=== PATIENT | female | born 1990 | race African-American/Black ===

== ENCOUNTER 2019-02-18 18:10 | Emergency (ER) | payer OTHER ==
[2019-02-18 18:41] VITALS: BP 143/59; PULSE 85; TEMP 98.2; BMI 29.3
[2019-02-18] MEDS ORDERED: KETOROLAC TROMETHAMINE 60 MG/2 ML VIAL IM ONE (19:10)
[2019-02-18] MEDS ORDERED: DIPHTH,PERTUSS(ACELL),TET 0.5 ML DISP.SYRIN IM ONE ×2 (19:10→19:41)
--- NOTE | 2019-02-18 19:19 | PDOC ---
History of Present Illness - General Chief Complaint: Injury Stated Complaint: FALL/INJURY Time Seen by Provider: 02/18/19 18:41 History Source: Patient Exam Limitations: Clinical Condition - History of Present Illness Initial Comments: 02/18/19 19:12 Patient with no significant past medical history present with complaint of symptoms day history of left knee pain and abrasion to left knee status post slip and fall going down stairs 6 days ago. Patient reported she tripped while going downstairs and fell hitting left knee and have an abrasion to left anterior knee. Patient reported increased pain with ambulation. Patient did not take anything for pain. Patient does not recall last tetanus vaccine Timing/Duration: other (6 days) Past History - Past Medical History Allergies/Adverse Reactions: Allergies Allergy/AdvReac Type Severity Reaction Status Date / Time No Known Allergies Allergy Verified 02/18/19 18:38 Home Medications: Ambulatory Orders Cephalexin Monohydrate [Keflex -] 500 mg PO BID 7 Days #14 capsule 02/18/19 Ibuprofen 800 mg PO Q8H PRN #20 tablet 02/18/19 Leg Brace [Knee Brace] 1 each MC DAILY #1 each 02/18/19 COPD: No - Immunization History Immunization Up to Date: Yes - Suicide/Smoking/Psychosocial Hx Smoking History: Never smoked Hx Alcohol Use: No Drug/Substance Use Hx: No Review of Systems - Review of Systems Able to Perform ROS?: Yes Is the patient limited Cymro proficient: No Constitutional: No: Weakness HEENTM: No: Symptoms Reported Respiratory: No: Symptoms reported Cardiac (ROS): No: Symptoms Reported ABD/GI: No: Symptoms Reported Musculoskeletal: Yes: See HPI, Joint Pain (left anterior knee), Muscle Pain ( left knee) Integumentary: Yes: Symptoms Reported, See HPI, Other (abrasions to anterior left knee) Neurological: No: Numbness, Paresthesia, Tingling, Weakness All Other Systems: Reviewed and Negative *Physical Exam - Vital Signs Last Vital Signs Temp Pulse Resp BP Pulse Ox 98.2 F 85 16 143/59 L 99 02/18/19 18:38 02/18/19 18:38 02/18/19 18:38 02/18/19 18:38 02/18/19 18:38 - Physical Exam Comments: 02/18/19 19:22 GENERAL: Well developed, well nourished. Awake and alert. No acute distress. CARDIOVASCULAR: Regular rate and rhythm. No murmurs, rubs, or gallops. PULMONARY: No evidence of respiratory distress. MUSCULOSKELETAL : Moderate tenderness over anterior left patella. Superficial abrasions to infrapatellar of left knee without bleeding. No joint swelling or effusion to left knee. No bony deformities SKIN: Warm and dry. Normal capillary refill. Superficial abrasions of anterior left knee to infrapatellar region. NEUROLOGICAL: Alert, awake, appropriate. No motor deficits in the lower extremities. Gait is normal without ataxia. PSYCHIATRIC: Cooperative. Good eye contact. Appropriate mood and affect. General Appearance: Yes: Nourished, Appropriately Dressed. No: Apparent Distress ED Treatment Course - RADIOLOGY Radiology Studies Ordered: Category Date Time Status KNEE 3 POS-LEFT [RAD] Stat Radiology 02/18/19 18:42 Taken Medical Decision Making - Medical Decision Making 02/18/19 19:19 Patient with no significant past medical history present with complaint of symptoms day history of left knee pain and abrasion to left knee status post slip and fall going down stairs 6 days ago. Patient reported she tripped while going downstairs and fell hitting left knee and have an abrasion to left anterior knee. Patient reported increased pain with ambulation. Patient did not take anything for pain. Patient does not recall last tetanus vaccine. Exam significant for 4 cm circular superficial abrasion to infrapatellar aspect of left knee without bleeding. Moderate tenderness to anterior patella of left knee. No joint effusion or swelling. Wound cleaned with Betadine and bacitracin applied to wound. Wound covered with adhesive bandage. X-ray of left knee shows no acute pathology of left knee. Toradol 60 mg IM given for pain. Tetanus vaccine given. Patient is stable for discharge on knee support brace with education on home wound care and Keflex antibiotics for infection prophylaxis with PCP follow-up *DC/Admit/Observation/Transfer Diagnosis at time of Disposition: Abrasion, left knee, initial encounter, Left anterior knee pain - Discharge Dispostion Disposition: HOME Condition at time of disposition: Stable Decision to Admit order: No - Prescriptions Prescriptions: Cephalexin Monohydrate [Keflex -] 500 mg PO BID 7 Days #14 capsule Ibuprofen 800 mg PO Q8H PRN #20 tablet PRN Reason: pain Leg Brace [Knee Brace] 1 each MC DAILY #1 each - Referrals Referrals: Emil Bull DO [Staff Physician] - - Patient Instructions Printed Discharge Instructions: DI for Abrasion, How to Use an Elastic Bandage- Knee Sprain, DI for Knee Sprain Additional Instructions: Take medications as prescribed. take it easy on left knee. ambulate as tolerated and use prescribed knee brace - Post Discharge Activity Forms/Work/School Notes: Back to Work
[2019-02-18] MEDS ORDERED: KETOROLAC TROMETHAMINE 60 MG/2 ML VIAL ONE (19:41)
== END 2019-02-18 20:15 | disposition home or self-care (01) ==
LOC: JERFT 18:10
PROC: 3E0234Z Introduction of Serum, Toxoid and Vaccine into Muscle, Percutaneous Approach (ICD-10-PCS; principal; 2019-02-18)
PROC: 3E0233Z Introduction of Anti-inflammatory into Muscle, Percutaneous Approach (ICD-10-PCS; 2019-02-18)
DX: S80.212A Abrasion, left knee, initial encounter (principal); W10.8XXA Fall (on) (from) other stairs and steps, initial encounter; Y93.89 Activity, other specified; Y92.89 Other specified places as the place of occurrence of the external cause; Y99.8 Other external cause status
CPT/HCPCS: 73562-TC-LT-FY; 90715; 99281-25

== ENCOUNTER 2022-09-07 18:23 | Emergency (ER) | payer OTHER ==
[2022-09-07 18:30] VITALS: BP 119/82; PULSE 72; RESP 18; TEMP 98; BMI 30.5
[2022-09-07] MEDS ORDERED: SODIUM CHLORIDE 0.9% 500 ML INFUS.BAG IV ONE (20:31)
[2022-09-07] MEDS ORDERED: ACETAMINOPHEN 500 MG TABLET (FP) PO ONE (20:31)
[2022-09-07] MEDS ORDERED: ACETAMINOPHEN 325 MG TABLET (FP) ONE (20:33)
[2022-09-07 20:54] LABS: HEMATOCRIT 33.2 % (32.4-45.2); HEMOGLOBIN 10.5 GM/dL (10.7-15.3); MCHC 31.5 g/dl (32.0-36.0); MEAN PLT VOLUME 9.5 fl (7.5-11.1); RBC 5.53 M/mm3 (3.60-5.2); RDW 18.6 % (11.6-15.6); WHITE BLOOD COUNT 8.2 K/mm3 (4.0-10.0)
[2022-09-07 20:58] LABS: EPI CELLS 32 /uL (0-25.1); HYALINE CASTS 0 /uL (0-3.1); PH,URINE 5.5 (5.0-8.0); URINE APPEARANCE CLEAR; URINE BACTERIA 582 /uL (0-1359); URINE BILIRUBIN NEGATIVE (NEGATIVE); URINE COLOR YELLOW; URINE GLUCOSE (UA) NEGATIVE (NEGATIVE); URINE KETONE NEGATIVE (NEGATIVE); URINE LEUK ESTERASE NEGATIVE (NEGATIVE); URINE NITRITE NEGATIVE (NEGATIVE); URINE PROTEIN NEGATIVE (NEGATIVE); URINE RBC 151 /uL (0-23.9); URINE UROBILINOGEN 0.2 mg/dL (0.2-1.0); URINE WBC 24 /uL (0-25.8)
[2022-09-07 21:02] LABS: ADD RBC MORPHOLOGY YES; MCH 18.9 pg (25.7-33.7)
[2022-09-07 21:14] LABS: CALCIUM 9.8 mg/dL (8.5-10.1)
[2022-09-07 21:16] LABS: BLOOD UREA NITROGEN 10.3 mg/dL (7-18)
[2022-09-07 21:17] LABS: CREATININE 0.8 mg/dL (0.55-1.3)
[2022-09-07 21:19] LABS: BILIRUBIN,TOTAL 0.4 mg/dL (0.2-1)
[2022-09-07 21:35] LABS: ANISOCYTOSIS 3+; MACROCYTOSIS 0; TARGET CELLS 2+; TEAR DROP CELLS 1+
[2022-09-07 21:36] LABS: PLATELET COUNT 240 10^3/uL (134-434)
== END 2022-09-07 22:47 | disposition home or self-care (01) ==
LOC: JER 18:23
DX: O26.891 Other specified pregnancy related conditions, first trimester (principal); R10.30 Lower abdominal pain, unspecified; Z3A.01 Less than 8 weeks gestation of pregnancy
CPT/HCPCS: 36415; 76817-TC; 80053; 81003; 84702; 84703; 85025; 86850; 86900; 86901; 87086; 99284-25

== ENCOUNTER 2025-05-05 19:41 | Emergency (ER) | payer OTHER ==
[2025-05-05 19:50] VITALS: BP 139/84; PULSE 93; RESP 18; TEMP 98.8; BMI 30.4
[2025-05-05] MEDS ORDERED: ACETAMINOPHEN INJECTION 100 ML ONE (20:52)
[2025-05-05] MEDS ORDERED: FAMOTIDINE 20 MG/50 ML IVPB 20 MG/50 ML MG IVPB ONE (20:53)
[2025-05-05] MEDS ORDERED: ONDANSETRON 4 MG/2 ML VIAL ONE (20:53)
[2025-05-05 21:03] LABS: ABSOLUTE IMMATURE GRANULOCYTES 0.01 x10^3/uL (0.0-0.031); BASOPHILS # 0.02 x10^3/uL (0.01-0.08); EOSINOPHIL % 0.6 % (0.7-5.8); EOSINOPHILS # 0.04 x10^3/uL (0.04-0.36)
[2025-05-05 21:07] LABS: EPI CELLS 25 /uL (0-25.1); HYALINE CASTS 0 /uL (0-3.1); PH,URINE 5.5 (5.0-8.0); URINE APPEARANCE CLEAR; URINE BACTERIA 752 /uL (0-1359); URINE BILIRUBIN NEGATIVE (NEGATIVE); URINE COLOR YELLOW; URINE GLUCOSE (UA) NEGATIVE (NEGATIVE); URINE KETONE 1+ (NEGATIVE); URINE LEUK ESTERASE 1+ (NEGATIVE); URINE NITRITE NEGATIVE (NEGATIVE); URINE PROTEIN NEGATIVE (NEGATIVE); URINE RBC 14 /uL (0-23.9); URINE WBC 17 /uL (0-25.8)
[2025-05-05] MEDS: FAMOTIDINE 20 MG/50 ML IVPB 20 MG/50 ML MG IVPB ONE (21:07)
[2025-05-05] MEDS: ONDANSETRON 4 MG/2 ML VIAL IVPUSH ONE (21:07)
[2025-05-05] MEDS: ACETAMINOPHEN 1000 MG/100 ML BAG IVPB ONE (21:07)
[2025-05-05 21:11] LABS: HEMATOCRIT 36.6 % (34.1-44.9); HEMOGLOBIN 11.1 g/dL (11.2-15.7); MCHC 30.3 g/dl (32.2-35.5); MEAN CELL VOLUME 59.2 fl (79.4-94.8); MONOCYTE # 0.42 x10^3/uL (0.24-0.86); MONOCYTE % 6.5 % (4.7-12.5); PLATELET COUNT 166 x10^3/uL (182-369)
[2025-05-05] MEDS: LACTATED RINGERS SOLUTION 1000 ML INFUS.BAG IV ONE (21:14)
[2025-05-05 21:24] LABS: ALBUMIN 4.3 g/dl (3.4-5.0); BLOOD UREA NITROGEN 9.5 mg/dL (7-18); MAGNESIUM 2.1 mg/dL (1.8-2.4)
[2025-05-05 21:27] LABS: CREATININE 0.9 mg/dL (0.55-1.3)
[2025-05-05 21:29] LABS: BILIRUBIN,TOTAL 0.6 mg/dL (0.2-1); TOT PROT 8.3 g/dl (6.4-8.2)
[2025-05-05 22:22] LABS: HIV INTERPRETATION NEGATIVE (NEGATIVE)
[2025-05-05 22:23] LABS: HCV DIAGNOSTIC IN-HOUSE W/RFLX NON-REACTIVE (NONREACTIVE)
[2025-05-05] MEDS ORDERED: CEFPODOXIME PROXETIL 100 MG TABLET PO ONE (22:45)
[2025-05-05] MEDS ORDERED: LACTATED RINGERS SOLUTION 1000 ML INFUS.BAG IV ONE (23:07)
[2025-05-05] MEDS ORDERED: CEFTRIAXONE 1 GM/50 ML BAG ONE (23:27)
[2025-05-05] MEDS ORDERED: METOCLOPRAMIDE HCL INJECTION 10 MG/2 ML VIAL ONE (23:29)
[2025-05-05] MEDS: METOCLOPRAMIDE HCL INJECTION 10 MG/2 ML VIAL IVPB ONE (23:39)
[2025-05-05] MEDS: SODIUM CHLORIDE 0.9% 500 ML INFUS.BAG IV ONE (23:39)
[2025-05-06] MEDS: CEFTRIAXONE 1,000 MG in DEXTROSE 5%-WATER - 50 ML IVPB ONE (01:30)
== END 2025-05-06 02:54 | disposition home or self-care (01) ==
LOC: JER 19:41
PROC: 3E033GC Introduction of Other Therapeutic Substance into Peripheral Vein, Percutaneous Approach (ICD-10-PCS; principal; 2025-05-05)
PROC: 3E03329 Introduction of Other Anti-infective into Peripheral Vein, Percutaneous Approach (ICD-10-PCS; 2025-05-05)
PROC: 3E033GC Introduction of Other Therapeutic Substance into Peripheral Vein, Percutaneous Approach (ICD-10-PCS; 2025-05-05)
PROC: 3E033GC Introduction of Other Therapeutic Substance into Peripheral Vein, Percutaneous Approach (ICD-10-PCS; 2025-05-05)
PROC: 3E033NZ Introduction of Analgesics, Hypnotics, Sedatives into Peripheral Vein, Percutaneous Approach (ICD-10-PCS; 2025-05-05)
DX: N12 Tubulo-interstitial nephritis, not specified as acute or chronic (principal); R11.2 Nausea with vomiting, unspecified; R53.81 Other malaise; R53.83 Other fatigue; R63.8 Other symptoms and signs concerning food and fluid intake; R10.84 Generalized abdominal pain
CPT/HCPCS: 0241U-QW; 36415; 74177-TC; 80053; 81003; 83690; 83735; 84703; 85025; 86803; 87086; 87389; 99285-25; Q9967